=== PATIENT | female | born 1985 | race Caucasian/White ===

== ENCOUNTER 2018-08-07 09:18 | Emergency (ER) | payer BC | END 2018-08-07 12:25 | disposition home or self-care (01) | LOC: FTE 09:18 | DX: O99.513 Diseases of the respiratory system complicating pregnancy, third trimester (principal); J06.9 Acute upper respiratory infection, unspecified; Z3A.34 34 weeks gestation of pregnancy | CPT/HCPCS: 99282 ==

== ENCOUNTER 2018-08-07 12:56 | Outpatient (CLI) | payer BC | END 2018-08-07 14:15 | disposition home or self-care (01) | LOC: OBT 12:56 → L-D 12:56 → OBT 14:15 | DX: O98.813 Other maternal infectious and parasitic diseases complicating pregnancy, third trimester (principal); J32.9 Chronic sinusitis, unspecified; O09.523 Supervision of elderly multigravida, third trimester; Z3A.34 34 weeks gestation of pregnancy | CPT/HCPCS: 76818 ==